=== PATIENT | male | born 1965 | race Caucasian/White ===

== ENCOUNTER 2023-05-02 09:34 | Day surgery (SDC) | payer BC ==
[2023-05-02] VITALS (10 sets, daily range): BP systolic 131–148; BP diastolic 53–88; PULSE 54–66; RESP 16; TEMP 98.1; O2SAT 93–97
[~2023-05-02] VITALS: Ht 188 cm; Wt 119.2 kg
[2023-05-02] MEDS ORDERED: ZINC220T3 PO (11:16)
[2023-05-02] MEDS ORDERED: ASCO-157 PO (11:16)
[2023-05-02] MEDS ORDERED: PANT40TA54 PO (11:16)
[2023-05-02] MEDS ORDERED: IRBE75TA15 PO (11:16)
[2023-05-02] MEDS ORDERED: MULT-1085 PO (11:16)
[2023-05-02] MEDS ORDERED: ATOR10TA70 PO (11:16)
[2023-05-02] MEDS ORDERED: VITA-268 PO (11:16)
[2023-05-02] MEDS ORDERED: CHOL100046 PO (11:16)
[2023-05-02] MEDS ORDERED: DOXY-224 PO (11:16)
[2023-05-02] MEDS ORDERED: HYDR25TA5 PO (11:16)
[2023-05-02] MEDS ORDERED: ondansetron 4mg rapidly disintigrating tab PO ONE (11:30)
== END 2023-05-02 13:58 | disposition home or self-care (01) ==
LOC: SSTAY O 09:34
PROVIDERS: ATTEND Psychiatry & Neurology Neurology
DX: R20.2 Paresthesia of skin (principal); I10 Essential (primary) hypertension; E78.5 Hyperlipidemia, unspecified; Z98.890 Other specified postprocedural states; Z72.89 Other problems related to lifestyle; Z79.899 Other long term (current) drug therapy
CPT/HCPCS: 62328; A6449